=== PATIENT | female | born 1975 | race Caucasian/White ===

== ENCOUNTER → 2019-05-25 | Outpatient (CLI) | payer BC, SELFPAY ==
--- NOTE | 2019-05-25 16:45 | MRI_ITS ---
STUDY: MRI BRAIN WITHOUT CONTRAST REASON FOR EXAM: Female, 43 years old. Dizziness and blurred vision TECHNIQUE: Standardized multiplanar fat and water weighted pulse sequences were obtained. COMPARISON: None. FINDINGS: Normal size of the ventricles and extra-axial spaces for the patient's age. Normal white matter tracts of the supratentorial brain. Normal bilateral basal ganglia. Normal thalami. There is no extra-axial fluid accumulation. Normal flow voids within the major intracranial circulation suggesting patency by spin echo criteria. Normal sella turcica, pituitary gland, infundibular stalk, optic chiasm and hypothalamus. Normal tectal plate and pineal gland. Normal midbrain, jean and medulla. Normal cerebellum. Normal basal cisterns. Normal bilateral temporal bones. Normal bilateral internal auditory canals. No demonstrated orbital abnormality, within the constraints of a routine brain study. Normal visualized paranasal sinuses. Normal calvarium and skull base. Normal visualized soft tissue structures. Normal visualized upper cervical spine. MRI/Brain without Contrast IMPRESSION: Normal unenhanced MRI of the brain. Electronically Signed: Luca Gabriel MD at 17:55 EDT , Service support ,
== END | disposition home or self-care (01) ==
LOC: MRI 16:41
PROVIDERS: Referring Provider Otolaryngology; Visit Provider Otolaryngology
DX: R42 Dizziness and giddiness (principal)
CPT/HCPCS: 70551

== ENCOUNTER 2019-07-14 10:00 | Outpatient (RCR) | payer BC, SELFPAY ==
--- NOTE | 2019-06-29 13:58 | HP.PTEVAL_ITS ---
Patient's Visit Information ESTELA SPARKS is a 43 year old F referred to Physical Therapy by Eugene Salomon MD with a diagnosis of vertigo BPPV R. Date of Evaluation: 06/29/19 Physical Therapist: Dave Lynn DPT, OCS, CSCS - Visit Plan Frequency: 2x /Week Duration: 4-6 Weeks Plan: 1-2x/week for vestibualr ex adn activities as needed. Start with Lebron today and move to BD exercises adn or habituation of head turns if needed. conitnually monitor need for other interventions. - Subjective Findings: Driving adn vision is an issue. Saw ENT then neurologist. It started being an issue about two months ago. Also had it back in the Spring. Anxiety. Went away tiself in the spring. Gets it in the car adn when bending to wash the dog. That feeling lasts a minute or two. 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 quick movements of head can cause it. Descirbes an uneasiness. Sleep is OK. Can still work but driving to office is not possible as her limit is about twenty minutes. Takes a few minutes to go away. Gets CAMACHO sometimes. Gets this feeling everytime she drives adn at least one time per day. Describes symptoms as floating. - Objective Walsk normal, stpes normal. c/s aROM WFL adn without pain. - B hallpike ted. - roll test. MSQ: no symptoms except head shake gentle trasnient symptoms, other positions OK. Oculomotor: no nystagmus with gaze or head shake. - head thrust. - skew eye deviations. - ocular tilt. pursuit and saccades appear normal. VOR is normal with out symptoms today 30 seconds horiz and vertical. - Balance Scores Functional Gait Assessment Score: 30 % Disability: 0 CATSIB Score (Max score 120 seconds): 120 - Goals Goal 1:: drive 1 hour to get to work without symptoms Goal Time Frame: 4-6 Weeks Goal 2:: Pt feel 100% back to normal Goal Time Frame: 6-8 Weeks Goal 3:: I appropr EHP to limit future problems Goal Time Frame: 4-6 Weeks - Rehabilitation Potential Physical Therapy Diagnosis: possible vestibular Rehabilitation Potential: Questionable - Anticipated Interventions Patient/Client Instruction: Educate patient on: Condition, Plan of Care Other: decrease symptoms. Comment: adaptations, habituation, positional. For the Purpose of:: To increase tolerance to activity/condition/position Thank you for the opportunity to evaluate your patient. For Medicare and Medicare HMO plans, please review the plan of care and approve it. It will need to be FAXED BACK to us at [phone] for Medicare purposes. For Medicare only, by signing this I certify the plan of care. Please let me know if there are questions or concerns regarding this plan of care. Physician Signature: Date:
--- NOTE | 2019-09-16 09:38 | HP.PT.NRP ---
HP - Discharge Summary (1) - Patient Information ESTELA SPARKS was seen in my office for initial evaluation on 06/29/19. The following Plan of Care was established for this patient: Initial Frequency: 2x /Week Initial Duration: 4-6 Weeks - Anticipated Interventions Patient/Client Instruction: Educate patient on: Condition, Plan of Care Other: decrease symptoms. For the Purpose of:: To increase tolerance to activity/condition/position This patient was last seen in our office 07/14/19. Pertinent comments regarding their Physical therapy will appear below: Pt seen 4 visits for vertigo adn was 85% lester. She was to f/u 3 weeks later to ensure improvement. She neglected to schedule or attend. At this point, it has been nearly two months and I will discontinue due to nonattendance. At this point I will be discontinuing this patient from physical therapy. I would be happy to see this patient again in the future if found appropriate by the physician. Thank you! Dave Lynn, DPT, OCS, CSCS
== END 2019-07-14 19:00 | disposition home or self-care (01) ==
LOC: PT 10:00
PROVIDERS: Family Provider Family Medicine; PCP Family Medicine; Referring Provider Psychiatry & Neurology Neurology; Visit Provider Psychiatry & Neurology Neurology
DX: R42 Dizziness and giddiness (principal)
CPT/HCPCS: 97162; 97530

== ENCOUNTER 2020-10-31 19:11 | Emergency (ER) | payer BC, SELFPAY ==
[2020-10-31 19:12] VITALS: BP 152/91; PULSE 99; RESP 18; TEMP 36.1; O2SAT 99; BMI 36.1
--- NOTE | 2020-10-31 19:27 | EKG12_ITS ---
Test Reason : CHEST OTHER Blood Pressure : / mmHG Vent. Rate : 083 BPM Atrial Rate : 083 BPM P-R Int : 150 ms QRS Dur : 092 ms QT Int : 376 ms P-R-T Axes : 050 025 027 degrees QTc Int : 441 ms Normal sinus rhythm Normal ECG Confirmed by GENO ROSS, AMISHA ([id number]), research editor TRENA DOYLE ([id number]) on 11/01/2020 1:58:02 PM Referred By: Confirmed By:AMISAH LORA MD
--- NOTE | 2020-10-31 19:30 | ED.RN ---
NO OLD EKGS IN MUSE
[2020-10-31] MEDS: Mag Hydrox/Al Hydrox/Simeth 30 ML UDC PO (19:39)
[2020-10-31] MEDS: 0.9% Normal Saline 1,000 ML 1000 ML IV (19:39)
--- NOTE | 2020-10-31 19:45 | RAD_ITS ---
STUDY: X-RAY CHEST REASON FOR EXAM: Female, 45 years old. Chest pain. Passive reflux. Chest pain radiating into the back and neck after eating for a period of one week TECHNIQUE: Single AP portable view of the chest. COMPARISON: None. FINDINGS: The lungs are clear and expanded. There is no demonstrated pleural abnormality. Normal size heart. Normal mediastinum and dipesh. Normal visualized pulmonary arteries. Normal visualized aortic arch and descending thoracic aorta. Normal visualized thoracic spine. Normal visualized ribs, clavicles, and shoulders. There is no demonstrated abnormality of the visualized soft tissue structures of the upper abdomen. RAD/Chest 1 View (Portable) IMPRESSION: No acute cardiopulmonary disease. Electronically Signed: Abhilash Case DO at 20:19 EDT Tel [phone], Service support ,
[2020-10-31 19:51] LABS: Absolute Lymphocyte Count 1.24 X10^3/uL (0.83-4.51); Absolute Neutrophil Count 6.7 X10^3/uL (2.0-7.7); Basophil# 0.02 X10^3/uL; Basophil% 0.2 % (0-1); Eosinophil# 0.01 X10^3/uL; Eosinophils% 0.1 % (0-5); Hematocrit 35.4 % (37-47); Hemoglobin 11.5 g/dL (12.0-15.0); Lymphocyte # 1.24 X10^3/ul (4.0); Lymphocyte % 14.4 % (19-41); Mean Corp Hgb Conc 32.5 g/dL (32-36); Mean Corpuscular Hgb 28.3 pg (27.0-32.0); Monocyte# 0.63 X10^3/uL; Monocyte% 7.3 % (0-10); NRBC Flagged by Analyzer 0 % (0-5); Neutrophil # 6.71 X10^3/uL (2.7-7.7); Neutrophil % 77.7 % (47-70); Platelet Count 209 K/mm3 (150-450); RBC Distribution Width CV 13.6 % (11.6-14.6); RBC Distribution Width SD 42.5 fl (35.1-43.9); Red Blood Count 4.07 M/mm3 (4.2-5.4); White Blood Count 8.6 K/mm3 (4.4-11.0)
[2020-10-31 20:06] LABS: D-Dimer Quantitative (DVT/PE) 0.35 FEU/ug/m (0.27-0.49)
[2020-10-31 20:09] LABS: ALB/GLOB Ratio 0.8 RATIO (0.9-2.4); AST(SGOT) 4 U/L (15-37); Alanine Aminotransfer ALT/SGPT 13 U/L (13-56); Albumin, Serum 3.6 g/dL (3.2-5.0); Alkaline Phosphatase 95 U/L (45-117); Anion Gap 9 (5-15); BUN 13 mg/dL (7-18); BUN/Creat Ratio 16.8 RATIO (10-20); Calcium,Total 8.9 mg/dL (8.5-10.1); Chloride 102 mmol/L (98-107); Creatinine, Serum 0.78 mg/dL (0.55-1.02); EST Glomerular Filtration Rate 86 mL/min (>60); Est Glom Filt Rate - Afr Amer 104 mL/min (>60); Estimated Creatinine Clearance 93.81 ml/min; Globulin 4.4 g/dL (2.2-4.2); Glucose 95 mg/dL (74-106); Lipase 101 U/L (73-393); Potassium 3.5 mmol/L (3.5-5.1); Sodium Level 137 mmol/L (136-145)
--- NOTE | 2020-10-31 20:12 | ED.DCSUM_ITS ---
- ER Visit Summary Date of Service: 10/31/20 Chief Complaint: Chest pain History of Present Illness: The patient is a 45 F presenting with chest pain. Patient states that she been having abdominal discomfort radiating to her chest for the past week. States this has been continuous for the past week. She states it starts in her epigastric area and then radiates to her chest. She denies shortness of breath. She went to urgent care today and they advised her to come to the ED for evaluation. She was previously on omeprazole and had discontinued this. She is now taking Nexium and is on her third day of Nexium. History of previous cholecystectomy. Physical Examination: Vitals are stable. Patient is afebrile. Alert no acute distress. HEENT exam is unremarkable. Neck is supple. Lungs are clear and equal bilaterally. Heart is regular rate and rhythm. Abdomen is soft mild epigastric tenderness with no guarding or rebound Extremities are unremarkable. Skin is warm and dry. No focal neurologic deficit. Remainder of exam is unremarkable. Emergency Department Course and Treatment: EKG is sinus rhythm rate of 83 with no acute ischemic changes. Patient was given a GI cocktail. CBC, chemistries unremarkable. Liver lipase are normal. Troponin is negative. D-dimer is normal. Chest x-ray read by myself and radiology shows no acute cardiopulmonary disease. On reevaluation, patient is resting comfortably. She is given pr escription for Carafate. Advised to follow-up with GI. Advised return to ED for worsening complaints. Disposition: Discharge home Impression: GERD, atypical chest pain This note was generated with [employer] dictation software. It may contain incorrect words, spelling, and punctuation that were not noted in review of the chart prior to signing ED Disposition - Plan for ED Patient: Disposition: Home or Assisted Living Instructions: ED Chest Pain, Uncertain Cause, ED GERD (Adult) Prescriptions: Sucralfate [Carafate] 1 gm PO 4X/DAY #28 tab Prescription Printed Referrals: Luca Mitchell MD [Primary Care Provider] -
--- NOTE | 2020-10-31 20:34 | ED.DEP ---
ED Disposition - Plan for ED Patient: Instructions: ED GERD (Adult), ED Chest Pain, Uncertain Cause Prescriptions: Sucralfate [Carafate] 1 gm PO 4X/DAY #28 tab Prescription Printed Referrals: Luca Mitchell MD [Primary Care Provider] -
[2020-10-31 20:50] VITALS: BP 125/76; PULSE 78; RESP 17; O2SAT 99
== END 2020-10-31 20:50 | disposition home or self-care (01) ==
PROVIDERS: Emergency Provider Emergency Medicine; PCP Family Medicine
DX: K21.9 Gastro-esophageal reflux disease without esophagitis (principal); R07.89 Other chest pain
CPT/HCPCS: 71045; 80053; 83690; 84484; 85025; 85379; 93005; 99285; J7030; A4216